=== PATIENT | female | born 1965 | race Caucasian/White ===

== ENCOUNTER 2025-06-10 07:54 | Outpatient (CLI) | payer OTHER ==
[2025-06-10 08:58] LABS: Estimated GFR - POC 73.0
[2025-06-10] MEDS ORDERED: Iopamidol 300 61% 100 ML VIAL FS ONE (10:13)
== END 2025-06-10 07:55 | disposition home or self-care (01) ==
LOC: CSHCT 07:54
PROVIDERS: ATTEND Internal Medicine
DX: R19.06 Epigastric swelling, mass or lump (principal)
CPT/HCPCS: 36415; 74177; 82565